=== PATIENT | female | born 1965 | race Asian ===

== ENCOUNTER 2018-09-11 08:56 | Outpatient (CLI) | payer OTHER ==
--- NOTE | 2018-09-12 14:17 | MMO ---
BILATERAL DIGITAL SCREENING MAMMOGRAM: 09/11/18 HISTORY: 52-year-old female presents for digital screening mammography. This patients mammo is interpreted with CAD Scattered areas of fibroglandular density are noted in both breasts. There are multiple stable areas of parenchymal density asymmetry noted in both breasts. No direct or indirect evidence of malignancy. IMPRESSION: BIRADS 2: Benign Finding(s) Routine annual screening mammography (for women over age 40). POS: [facility]
== END 2018-09-11 08:57 | disposition home or self-care (01) ==
LOC: SCSMAMMO 08:56
PROVIDERS: ATTEND Family Medicine
DX: Z12.31 Encounter for screening mammogram for malignant neoplasm of breast (principal)
CPT/HCPCS: 77067